=== PATIENT | female | born 1985 | race American Indian/Alaskan Native ===

== ENCOUNTER 2021-11-11 22:28 | Emergency (ER) | payer OTHER ==
[2021-11-12] MEDS ORDERED: IBUPROFEN 800 MG TAB PO ONE (03:56)
--- NOTE | 2021-11-12 04:37 | Emergency Department Report ---
ED General Adult HPI - General Chief complaint: Fever Stated complaint: BODY ACHES, HEADACHE Time Seen by Provider: 11/12/21 03:56 Source: patient Mode of arrival: Ambulatory Limitations: No Limitations - History of Present Illness Initial comments: Is a 36-year-old female who presents for fevers chills body aches and sore throat with cough productive x3 days. Cough is productive clear there is no nausea or vomiting. Patient does endorse bilateral nipple tenderness. Last menstrual cycle 1 month ago. Symptoms are exacerbated by activity. Symptoms are relieved by nothing tried. Patient is COVID vaccinated. Been no wheezing or stridor. Patient denies history of asthma or bronchitis. Severity scale (0 -10): 10 - Related Data Previous Rx's Medication Instructions Recorded Last Taken Type Fluticasone [Flonase] 1 spray NS QDAY #1 bottle 05/18/15 Unknown Rx Ibuprofen [Motrin] 600 mg PO Q8H PRN #30 tablet 05/18/15 Unknown Rx Ibuprofen [Motrin 800 MG tab] 800 mg PO Q8HR PRN #30 tablet 11/12/21 Unknown Rx Ondansetron [Zofran Odt] 4 mg PO Q8HR #12 tab.rapdis 11/12/21 Unknown Rx Allergies Allergy/AdvReac Type Severity Reaction Status Date / Time No Known Allergies Allergy Verified 10/30/13 15:22 ED Review of Systems ROS: Stated complaint: BODY ACHES, HEADACHE Other details as noted in HPI Constitutional: chills, fever, malaise Eyes: denies: eye pain, eye discharge, vision change ENT: throat pain, congestion Respiratory: cough. denies: shortness of breath, wheezing Cardiovascular: denies: chest pain, palpitations Endocrine: no symptoms reported Gastrointestinal: denies: abdominal pain, nausea, vomiting, diarrhea Genitourinary: denies: urgency, dysuria, frequency, hematuria, discharge Musculoskeletal: back pain Skin: denies: rash, lesions Neurological: headache. denies: weakness, paresthesias, vertigo Psychiatric: denies: anxiety, depression Hematological/Lymphatic: denies: easy bleeding, easy bruising ED Past Medical Hx - Past Medical History Hx Hypertension: No Hx Congestive Heart Failure: No Hx Diabetes: No Hx Deep Vein Thrombosis: No Hx Renal Disease: No Hx Sickle Cell Disease: No Hx Seizures: No Hx Asthma: No Hx COPD: No Hx HIV: No Additional medical history: Anemia, 4 vaginal delivery - Surgical History Additional Surgical History: 2009 - Social History Smoking Status: Never Smoker Substance Use Type: Alcohol, Non Opiate Pain - Medications Home Medications: Home Medications Medication Instructions Recorded Confirmed Last Taken Type Fluticasone [Flonase] 1 spray NS QDAY #1 bottle 05/18/15 Unknown Rx Ibuprofen [Motrin] 600 mg PO Q8H PRN #30 tablet 05/18/15 Unknown Rx Ibuprofen [Motrin 800 MG tab] 800 mg PO Q8HR PRN #30 tablet 11/12/21 Unknown Rx Ondansetron [Zofran Odt] 4 mg PO Q8HR #12 tab.rapdis 11/12/21 Unknown Rx ED Physical Exam - General Limitations: No Limitations General appearance: alert, in no apparent distress - Head Head exam: Present: normocephalic, normal inspection - Eye Eye exam: Present: normal appearance, EOMI Pupils: Present: normal accommodation - ENT ENT exam: Present: mucous membranes moist, TM's normal bilaterally, normal external ear exam - Expanded ENT Exam Expanded Ear exam: Present: normal external inspection Throat exam: Positive: tonsillar erythema, tonsillomegaly, other (Uvula midline no lesions no stridor). Negative: tonsillar exudate, R peritonsillar mass, L peritonsillar mass - Neck Neck exam: Present: normal inspection, full ROM. Absent: tenderness, lymphadenopathy - Respiratory Respiratory exam: Present: normal lung sounds bilaterally, wheezes, chest wall tenderness (Anterior chest wall tenderness no crepitus no swelling no deformity heart sounds are clear throughout.). Absent: respiratory distress, stridor, prolonged expiratory - Cardiovascular Cardiovascular Exam: Present: regular rate, normal rhythm, normal heart sounds. Absent: systolic murmur, diastolic murmur, rubs, gallop - GI/Abdominal GI/Abdominal exam: Present: soft, normal bowel sounds. Absent: distended, tenderness, guarding, rebound, rigid, bruit, hernia - Rectal Rectal exam: Present: deferred - Extremities Exam Extremities exam: Present: normal inspection, full ROM, normal capillary refill - Back Exam Back exam: Present: normal inspection, full ROM. Absent: CVA tenderness (R), CVA tenderness (L), rash noted - Neurological Exam Neurological exam: Present: alert, oriented X3, CN II-XII intact, normal gait - Expanded Neurological Exam Expanded Patient oriented to: Present: person, place, time Speech: Present: fluid speech Motor strength exam: RUE: 5, LUE: 5, RLE: 5, LLE: 5 Best Eye Response ([place]): (4) open spontaneously Best Motor Response ([place]): (6) obeys commands Best Verbal Response ([place]): (5) oriented [place] Total: 15 - Psychiatric Psychiatric exam: Present: normal affect, normal mood - Skin Skin exam: Present: warm, dry, intact, normal color. Absent: rash ED Course Vital Signs 11/11/21 11/12/21 22:31 04:20 Temperature 98.8 F Pulse Rate 101 H Respiratory 18 16 Rate Blood Pressure 153/89 O2 Sat by Pulse 100 Oximetry ED Medical Decision Making - Lab Data Result diagrams: 11/12/21 05:09 11/12/21 05:09 Labs 11/12/21 11/12/21 11/12/21 04:30 05:09 05:09 WBC 7.2 RBC 3.81 Hgb 11.2 Hct 34.0 MCV 89 MCH 29 MCHC 33 RDW 12.4 L Plt Count 218 Lymph % (Auto) 38.4 H Ste[place] % (Auto) 7.2 Eos % (Auto) 1.5 Baso % (Auto) 0.3 Lymph # (Auto) 2.7 [place] # (Auto) 0.5 Eos # (Auto) 0.1 Baso # (Auto) 0.0 Seg Neutrophils % 52.6 Seg Neutrophils # 3.8 Sodium 136 L Potassium 4.1 Chloride 102.2 Carbon Dioxide 26 Anion Gap 12 BUN 10 Creatinine 0.9 Estimated GFR > 60 BUN/Creatinine Ratio 11 Glucose 84 Calcium 8.7 Total Bilirubin 0.60 AST 14 ALT 9 Alkaline Phosphatase 60 Total Protein 6.0 L Albumin 3.7 L Albumin/Globulin Ratio 1.6 Urine Color Yellow Urine Turbidity Slightly cloudy Specific [place] (Man) 1.025 Ur Protein (Man) 1+ Ur Ketones (Man) Negative Urine Bilirubin (Man) Moderate Urine WBC (Auto) 3.0 Urine RBC (Auto) 39.0 U Epithel Cells (Auto) 5.0 Urine RBC (Manual) 2+ Urine Mucus 3+ Urine HCG, Qual Negative - Radiology Data Radiology results: report reviewed, image reviewed CHEST 2 VIEWS INDICATION / CLINICAL INFORMATION: cough fever. COMPARISON: None available. FINDINGS: SUPPORT DEVICES: None. HEART / MEDIASTINUM: No significant abnormality. LUNGS / PLEURA: No significant pulmonary or pleural abnormality. No pneumothorax. ADDITIONAL FINDINGS: No significant additional findings. IMPRESSION: 1. No acute findings. Signer Name: Antonio Cabrera MD Signed: 11/12/2021 5:49 AM Workstation Name: [id number] Transcribed By: CW Dictated By: AVTAR CABRERA MD Electronically Authenticated By: AVTAR CABRERA MD Signed Date/Time: 11/12/21548 DD/ 8 TD/TT: - Medical Decision Making Labs noted as above hCG is negative, chest x-ray normal no infiltrates no opacities, he is likely viral syndrome, patient is tolerating p.o. intake without nausea vomiting plan DC to home, continue to hydrate, follow-up with your primary care doctor in 2 to 3 days. Return to emergency department should symptoms worsen. Patient verbalized agreement and understanding of same patient DC to home in stable condition at this time. Critical care attestation.: If time is entered above; I have spent that time in minutes in the direct care of this critically ill patient, excluding procedure time. ED Disposition Clinical Impression: Viral illness Disposition: 01 HOME / SELF CARE / HOMELESS Is pt being admited?: No Does the pt Need Aspirin: No Condition: Stable Instructions: Viral Illness, Adult Additional Instructions: Take medications as prescribed, hydrate as directed. Follow-up with your doctor in 2 to 3 days. Return to emergency department should symptoms worsen. Prescriptions: Ibuprofen [Motrin 800 MG tab] 800 mg PO Q8HR PRN #30 tablet PRN Reason: pain fever Ondansetron [Zofran Odt] 4 mg PO Q8HR #12 tab.rapdis Referrals: CIERRA LR MD [Staff Physician] - 3-5 Days Forms: Work/School Release Form(ED) Time of Disposition: 06:19
[2021-11-12 04:53] LABS: Color,Urine Yellow (Yellow)
[2021-11-12 04:58] LABS: Mucus,Urine 3+ /HPF
[2021-11-12 04:59] LABS: HCG Qualitative,Urine Negative (Negative)
[2021-11-12 05:54] LABS: Basophils % (Auto) 0.3 % (0.0-1.8); Eosinophils # (Auto) 0.1 K/mm3 (0.0-0.4); Eosinophils % (Auto) 1.5 % (0.0-4.3); Hemoglobin 11.2 gm/dl (10.1-14.3); Lymphocytes # (Auto) 2.7 K/mm3 (1.2-5.4); Lymphocytes % (Auto) 38.4 % (13.4-35.0); Mean Corpuscular HGB Conc 33 % (30-34); Mean Corpuscular Volume 89 fl (79-97); Monocytes # (Auto) 0.5 K/mm3 (0.0-0.8); Monocytes % (Auto) 7.2 % (0.0-7.3); Platelet Count 218 K/mm3 (140-440); Red Blood Count 3.81 M/mm3 (3.65-5.03); Red Cell Distribution Width 12.4 % (13.2-15.2)
--- NOTE | 2021-11-12 05:54 | XRay Report ---
CHEST 2 VIEWS INDICATION / CLINICAL INFORMATION: cough fever. COMPARISON: None available. FINDINGS: SUPPORT DEVICES: None. HEART / MEDIASTINUM: No significant abnormality. LUNGS / PLEURA: No significant pulmonary or pleural abnormality. No pneumothorax. ADDITIONAL FINDINGS: No significant additional findings. IMPRESSION: 1. No acute findings. Signer Name: Antonio Miles MD Signed: 11/12/2021 5:49 AM Workstation Name: [id number]
[2021-11-12 06:01] LABS: Alanine Aminotransferase 9 units/L (7-56); Albumin 3.7 g/dL (3.9-5); BUN/Creatinine Ratio 11; Blood Urea Nitrogen 10 mg/dL (7-17); Calcium 8.7 mg/dL (8.4-10.2); Hemolysis Index 3
[2021-11-12 06:41] VITALS: BP 157/88
== END 2021-11-12 06:48 | disposition home or self-care (01) ==
LOC: ED 22:28
DX: B34.9 Viral infection, unspecified (principal); F10.20 Alcohol dependence, uncomplicated
CPT/HCPCS: 36415; 71046; 80053; 81001; 81025; 85025; 99284